=== PATIENT | male | born 1960 | race Caucasian/White ===

== ENCOUNTER 2017-02-05 12:26 | Emergency (ER) | payer OTHER ==
[2017-02-05 13:13] LABS: BASO % 0.5 % (0.2-1.2); EOS # 0.4 10_X3_uL (0.0-0.5); EOS % 5.1 % (0.8-7.0); GRAN # 6.1 10_X3_uL (1.8-5.4); GRAN % 70.5 % (34.0-67.9); HEMATOCRIT 43.6 % (40-51); HEMOGLOBIN 15.4 g/dL (13.7-17.5); LYMPH # 1.2 10_X3_uL (1.3-3.6); LYMPH % 14.3 % (21.8-53.1); MEAN CORPUSCULAR HEMOGLOBIN 32.2 pg (27.0-33.0); MEAN CORPUSCULAR HGB CONC 35.3 g/dL (32.0-36.0); MEAN PLATELET VOLUME 10.4 fl (7.5-11.5); MONO # 0.8 10_X3_uL (0.3-0.8); MONO % 9.6 % (5.3-12.2); PLATELET COUNT 158 x10_3/uL (163-337); RED BLOOD COUNT 4.79 x10_6/uL (4.6-6.1); RED CELL DISTRIBUTION WIDTH 12.7 % (11.6-14.4); WHITE BLOOD COUNT 8.6 x10_3/uL (4.2-9.1)
[2017-02-05 13:14] LABS: URINE BILIRUBIN 1+ (NEGATIVE); URINE BLOOD 3+ (NEGATIVE); URINE GLUCOSE (UA) NORMAL (NORMAL); URINE KETONE TRACE (NEGATIVE); URINE LEUKOCYTE ESTERASE TRACE (NEGATIVE); URINE NITRATE POSITIVE (NEGATIVE); URINE PROTEIN 1+ (NEGATIVE)
[2017-02-05 13:29] LABS: URINE BACTERIA 1+ (NONE SEEN); URINE CALCIUM OXALATE CRYSTALS 0-2 /[HPF] (NONE SEEN); URINE COARSE GRANULAR CAST 0-2 /[HPF] (NONE SEEN); URINE FINE GRANULAR CAST 0-2 /[HPF] (NONE SEEN); URINE RBC TNTC /[HPF] (0-2); URINE SQUAMOUS EPITHELIAL CELL 0-10 /[HPF] (NONE SEEN); URINE WBC 0-5 /[HPF] (0-3)
[2017-02-05 13:30] LABS: URINE MUCUS 2+
[2017-02-05 13:32] LABS: ALBUMIN 4.2 gm/dL (3.4-5.0); ALKALINE PHOSPHATASE 59 U/L (50-136); ALT/SGPT 14 U/L (7.53-40.17); AST/SGOT 16 U/L (6.66-35.34); BILIRUBIN,TOTAL 0.49 mg/dL (0.0-1.0); BLOOD UREA NITROGEN 17 mg/dL (7-18); CALCIUM 9.1 mg/dL (8.7-10.7); CARBON DIOXIDE 25 mmol/L (21-32); CREATININE 0.7 mg/dL (0.6-1.3); GLUCOSE,RANDOM 101 mg/dL (70-99); LIPASE 32 U/L (6.75-60.75); POTASSIUM 3.6 mmol/L (3.5-5.1); SODIUM 142 mmol/L (136-145); TOTAL PROTEIN 7.3 gm/dL (6.4-8.2)
== END 2017-02-05 16:51 | disposition home or self-care (01) ==
LOC: ER 12:26
PROVIDERS: Internal Medicine
DX: R19.7 Diarrhea, unspecified (principal); M54.9 Dorsalgia, unspecified; R11.0 Nausea; R50.9 Fever, unspecified; R82.90 Unspecified abnormal findings in urine; I25.10 Atherosclerotic heart disease of native coronary artery without angina pectoris; Z95.0 Presence of cardiac pacemaker; Z95.5 Presence of coronary angioplasty implant and graft; F17.210 Nicotine dependence, cigarettes, uncomplicated; Z79.82 Long term (current) use of aspirin; Z79.02 Long term (current) use of antithrombotics/antiplatelets; Z79.899 Other long term (current) drug therapy
CPT/HCPCS: 36415; 80053; 81001; 83630; 83690; 85025; 87045; 87086; 96361; 96374; 96375; 99070; 99284; 99284-25; G0328-QW; J7040; Q9967

== ENCOUNTER → 2017-02-23 | Day surgery (SDC) | payer OTHER ==
[~2017-02-23] VITALS: Ht 185.4 cm; Wt 86.6 kg
== END ==
LOC: OPS 09:40
PROC: 0DB48ZX Excision of Esophagogastric Junction, Via Natural or Artificial Opening Endoscopic, Diagnostic (ICD-10-PCS; principal; 2017-02-23)
PROC: 0DB78ZX Excision of Stomach, Pylorus, Via Natural or Artificial Opening Endoscopic, Diagnostic (ICD-10-PCS; 2017-02-23)
PROC: 0DJD8ZZ Inspection of Lower Intestinal Tract, Via Natural or Artificial Opening Endoscopic (ICD-10-PCS; 2017-02-23)
DX: K21.0 Gastro-esophageal reflux disease with esophagitis (principal); K29.70 Gastritis, unspecified, without bleeding; R11.0 Nausea; R19.7 Diarrhea, unspecified; K62.5 Hemorrhage of anus and rectum; R05 Cough; K57.90 Diverticulosis of intestine, part unspecified, without perforation or abscess without bleeding; F41.9 Anxiety disorder, unspecified; N40.0 Benign prostatic hyperplasia without lower urinary tract symptoms; E78.5 Hyperlipidemia, unspecified; R91.1 Solitary pulmonary nodule; G47.30 Sleep apnea, unspecified; I25.10 Atherosclerotic heart disease of native coronary artery without angina pectoris; M51.36 Other intervertebral disc degeneration, lumbar region; E11.21 Type 2 diabetes mellitus with diabetic nephropathy; Z95.0 Presence of cardiac pacemaker; Z95.5 Presence of coronary angioplasty implant and graft; J44.9 Chronic obstructive pulmonary disease, unspecified; M19.90 Unspecified osteoarthritis, unspecified site; R10.13 Epigastric pain; Z79.899 Other long term (current) drug therapy; Z79.02 Long term (current) use of antithrombotics/antiplatelets; Z79.82 Long term (current) use of aspirin; Z79.891 Long term (current) use of opiate analgesic
CPT/HCPCS: 43239; 45378; 94664; 99070; J2704

== ENCOUNTER 2017-03-07 17:21 | Emergency (ER) | payer OTHER | END 2017-03-07 19:24 | disposition home or self-care (01) | LOC: ER 17:21 | DX: S22.31XA Fracture of one rib, right side, initial encounter for closed fracture (principal); R07.81 Pleurodynia; M54.9 Dorsalgia, unspecified; G89.29 Other chronic pain; I25.10 Atherosclerotic heart disease of native coronary artery without angina pectoris; M51.9 Unspecified thoracic, thoracolumbar and lumbosacral intervertebral disc disorder; F17.210 Nicotine dependence, cigarettes, uncomplicated; Z79.899 Other long term (current) drug therapy; Z79.82 Long term (current) use of aspirin; Z79.02 Long term (current) use of antithrombotics/antiplatelets | CPT/HCPCS: 71250; 72128; 96372; 99283; 99283-25 ==